=== PATIENT | male | born 1950 | race Caucasian/White ===

== ENCOUNTER 2017-11-29 09:09 | Day surgery (SDC) | payer MEDICARE, OTHER ==
[~2017-11-29 09:09] MED LIST: Buffered Lidocaine 0.9% SYRIN* 5 ML/SYR SYRINGE INTRADERM ONE; Dexamethasone IV* 4 MG/ML 1 ML (4 MG) IV SLOW PU ONE; Levalbuterol 0.63MG/3ML NEB* UNIT OF USE INH ONE
[2017-11-29] MEDS ORDERED: Dexamethasone IV* 4 MG/ML 1 ML (4 MG) ONE (09:21)
[2017-11-29] MEDS ORDERED: Levalbuterol 0.63MG/3ML NEB* UNIT OF USE INH ONE ×3 (09:22→16:02)
[2017-11-29] MEDS ORDERED: ceFAZolin 2 GM PREMIX (*) 2 GM/50 ML BAG IVPB ONE (09:22)
[2017-11-29] MEDS ORDERED: Midazolam* 1 MG/ML 5 ML VIAL (5 MG) ONE (11:09)
[2017-11-29] MEDS ORDERED: fentaNYL* 50 MCG/ML 2 ML VIAL (100 MCG VIAL) ONE ×4 (11:09→14:54)
[2017-11-29] MEDS ORDERED: Propofol* 10 MG/ML 20 ML BTL IV PUSH ONE (11:37)
[2017-11-29] MEDS ORDERED: Ropivacaine (OR use only) 2 MG/ML 10 ML ONE ×2 (11:37→11:38)
[2017-11-29] MEDS ORDERED: Lidocaine 2% PF * 5 ML VIAL ONE (11:37)
[2017-11-29] MEDS ORDERED: Atracurium* 10 MG/ML 10 ML VIAL ONE (11:40)
[2017-11-29] MEDS ORDERED: EPINEPHRINE 1 MG/ML 1 ML VIAL ONE (11:56)
[2017-11-29] MEDS ORDERED: Bupivacaine 0.5% SDV PF* 30ML VIAL ONE (11:56)
[2017-11-29] MEDS ORDERED: HYDROmorphone INJ* 1 MG/ML CARPUJECT SYRINGE IV PRN (13:08)
[2017-11-29] MEDS ORDERED: fentaNYL* 50 MCG/ML 2 ML VIAL (100 MCG VIAL) IV PRN (13:08)
[2017-11-29] MEDS ORDERED: DiMENhydriNATE IV* 50 MG/ML VIAL IV PUSH PRN (13:08)
[2017-11-29] MEDS ORDERED: Ondansetron INJ* 2 MG/ML VIAL IV PRN (13:08)
[2017-11-29] MEDS ORDERED: Naloxone* 0.4 MG/ML 1 ML VIAL IV PRN (13:08)
[2017-11-29] MEDS ORDERED: oxyCODONE/Acetamin 5/325 MG* TAB ONE ×2 (16:21→18:25)
[2017-11-29] MEDS: oxyCODONE/Acetamin 5/325 MG* TAB PO PRN ×2 (16:22→18:26)
[2017-11-29 19:21] VITALS: BP 147/76
--- NOTE | 2017-12-01 01:54 | OP ---
OPERATIVE REPORT: DATE OF OPERATION: 11/29/17 DATE OF : 54 SURGEON: Kirk Oreilly MD COOK CHILI: CARLOS Oden A physician medical assistant supervisor was required for the length of the procedure for positioning, help with instrum entation and closure. ANESTHESIOLOGIST: Dr. Arian Tyson. ANESTHESIA: General anesthesia, right regional nerve block, local anesthesia. PRE-OP DIAGNOSES: 1. Right shoulder recurrent, massive rotator cuff tendon tear, retracted with supraspinatus and infr aspinatus, possible superior subscapularis. 2. Right shoulder subacromial impingement, chronic long head biceps tendon tear. 3. History of right shoulder open rotator cuff tendon repair done by Dr. Stern at [facility] in 2005. POST-OP DIAGNOSES: 1. Right shoulder recurrent, massive rotator cuff tendon tear, retracted, supraspinatus and infraspi natus. 2. Right shoulder subacromial impingement, chronic biceps tendon tear, long head. 3. History of right shoulder open rotator cuff tendon repair done by Dr. Stern at [facility] in 2005. OPERATIVE PROCEDURES: 1. Right shoulder arthroscopic revision rotator cuff tendon repair, massive, retracted, 5 anchors in a double-row construct. 2. Modifier 22 was coded for this procedure due to the complexity of it. The patient had a full wid th 2 tendon tear of the supraspinatus and infraspinatus with retraction to the level of the glenoid o r medial to the glenoid. There was some unusual shape to the rotator cuff tear and the tendon likely secondary to an open prior rotator cuff tendon repair in 2005 in an outside hospital. 3. Right shoulder arthroscopic subacromial decompression. ANTIBIOTICS: Ancef 2 g IV. IV FLUIDS: 2000 cc crystalloid. [id number] TIME: 158 minutes. ARTHROSCOPIC FLUID UTILIZED: 18 bags each with 3 L for a total of 54 L. SPECIMEN: None. IMPLANTS: Two triple-loaded Mitek Gryphon 5.5-mm anchors. One double loaded Mitek Gryphon 5.5-mm an chor, two knotless Mitek Gryphon 5.5-mm anchors for a total of five anchors. COMPLICATIONS: None. ESTIMATED BLOOD LOSS: Minimal. INDICATIONS FOR PROCEDURE: The patient is a 67-year-old man, who smokes one pack per day of cigarett es with multiple medical problems including those that affect the heart and lungs who is [address] atus post arthroscopic rotator cuff repair of the contralateral left shoulder done by me on 05/25/16, who presented to me more recently after a fall and injury of the right shoulder on 10/01/17. 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 See my 10/29/17 clinic notes for the details. When I first saw the patient in clinic, I knew he had a la rge rotator cuff tendon tear. He told me that he had had prior rotator cuff repair performed by Dr. Stern at [facility]. The scar on the right shoulder made it obvious that this was done op en rather than arthroscopic. MRI confirmed the diagnosis and the patient opted for surgery. I discu ssed risks and potential complications of surgery. Given the patient's status as a smoker, the recurrent nature of this tear, and the retraction of two tendons, supra and infraspinatus to the level of the glenoid, I told the patient that it was not guar anteed that this would be repairable. However, the lack of significant fatty infiltration in the rota tor cuff musculature made me optimistic that a repair was feasible. DESCRIPTION OF PROCEDURE: Preoperatively the patient signed a written consent. Operative extremity w as marked in preoperative holding. In preoperative holding, Dr. Tyson performed a right regional nerve block. This was purposely liked to avoid any possible injury to the phrenic nerve and that lynette ht cause hypomotility of the diaphragm. The patient is known to have a very poor lung reserve, capac ity. The patient was taken to the operating room and placed supine on the operating room table. The patient was sedated and intubated. The patient was transferred into the lateral decubitus position right side up. Granado bag was hardened, axillary roll was placed, all bony prominences padded and the right shoulder was placed in 15 pounds of longitudinal retraction with the appropriate amount of shoulder forward flexion and abduction. The right shoulder was prepped and draped. Surgical time out was performed. A 30 cc of normal salin e were infused into the glenohumeral joint from posterior and a posterior glenohumeral joint portal w as established. Diagnostic arthroscopy was commenced. No loose bodies were noted in the glenohumera l joints. It was immediately obvious that the patient had a large rotator cuff tear as I could see d irectly up into the subacromial space. Some suture material was visible, retracted just medial to th e glenoid. There was some scar tissue directly superior. At first, I thought the biceps tendon was present. I looked at some tissue from a variety of views and then it became clear that it was not th e biceps and was rather some scar tissue mixed in this rotator cuff tendon tissue. I debrided minima lly of some synovitis and labral fraying. I then entered the subacromial space from anterior and pos terior. I established a lateral subacromial portal under direct visualization. I debrided subacromi al bursitis, improving my visualization. I established a posterolateral portal to improve my visuali zation. The patient had no supraspinatus or infraspinatus attached to the humeral head whatsoever. H e had a full-width tears with retraction to medial of the glenoid. There was a small amount of scar t issue bridge present that was released. I took a grasper and found that the rotator cuff tendons pretty t were torn were fairly mobile. I next debrided the undersurface of the acromion with a VAPR and performed my subacromial decompressi on with an arthroscopic adam. This opened up the subacromial space a little bit additionally. I next went to about improving the mobility of my torn rotator cuff tendon. I used a switching stick and an arthroscopic shaver to release the retracted tendon superior and inferior to it. I encounter ed some bleeding and I had to cauterize this bleeding and wait for it slow down so that my visualizat ion would improve. I placed a traction stitch with FiberWire #2, in the tendon to pull it out to length and then I debri ded more, tendon attachments allowing some additional traction. The tendon appeared to just reach the medial aspect of the rotator cuff tendon footprint on the great er tuberosity. I prepared the foot print with VAPR and then with arthroscopic adam to improve healin g potential. I next placed an anchor more anteriorly and exposed footprint. This was triple loaded. This was at the medial end of the footprint. Using a Bill and Nephew passer, I placed three horizontal mattress stitches in the rotator cuff tendon. I placed these stitches and tied them as I went. These barely were able to bring the rotator cuff tendon down to bone. They were under some tension. Interestingly, after this first anchor had been placed, I noted improved mobility of tissue anterior to this. It seemed that there was laxity to the anterior aspect of the supraspinatus that was not ap preciable when I first grasped all parts of the tendon that had retracted. Perhaps the first anchor placed potentiated this improved mobility. I noted that the supraspinatus tissue more anterior and w as able to come further over the humeral head than the first amount of tissue. Therefore I placed my second anchor just anteriorly to the first anchor but much more lateral. Then I placed three horizontal mattress stitches and then tied them. I was very happy with the large amoun t of rotator cuff apposing bone. I next addressed the more about posterior rotator cuff tendon tissue. There was not much infraspinat us tendon remaining. I clearly found myself manipulating with grasper a tendon and muscle. I placed a double loaded Mitek suture anchor in the medial aspect of the footprint more posteriorly and passe d with a [employer] suture passer as well as with a Portal passer from [employer], two horizontal mat tress stitches and then tied them. This brought rotator cuff tendon to bone on the entire distance o f the tear anterior to posterior. I was very happy with this construct but it clearly required a lat eral row given the length of the tear and given that that first anchor stitches were under some tensi on. Therefore I next cleared the lateral footprint and placed two lateral row anchors. The more ant erior of the two took suture from the posterior anchors and the more posterior of the lateral row anc hors took suture that were more anteriorly placed from the medial row. I probed my repair and liked it. As I moved the humeral head, the repair seemed very solid. I next performed a little bit of add itional subacromial decompression using an arthroscopic adam to completely open up that subacromial s pace. I removed instruments and fluids from the subacromial space. Skin incisions were closed with [id number] and 12 stitches using nylon 4.0 suture. Xeroform, 4x 4s, ABDs, foam tape, sling and abduction pillow, cooling unit. The patient was awakened, extubated an d brought to the PACU. DISPOSITION: The patient recovered in the PACU. We considered admitted him given his medical proble ms and low respiratory reserve, but the patient did very well in the PACU, he was very comfortable an d was breathing normally and very comfortable. He preferred being discharged home and we felt that he was safe to. The patient will receive Percocet as needed for pain control and aspirin b.i.d. nicolas mchugh for DVT prophylaxis. He will follow up 10 to 14 days postoperatively. He will start physical the rapy immediately. Wound care instructions provided. [id number]/[facility] #: [id number]
== END 2017-11-29 19:35 | disposition home or self-care (01) ==
LOC: OR 09:09
PROVIDERS: ATTEND Orthopaedic Surgery
DX: S46.011D Strain of muscle(s) and tendon(s) of the rotator cuff of right shoulder, subsequent encounter (principal); S46.211D Strain of muscle, fascia and tendon of other parts of biceps, right arm, subsequent encounter; M75.41 Impingement syndrome of right shoulder; M19.011 Primary osteoarthritis, right shoulder; I10 Essential (primary) hypertension; J44.9 Chronic obstructive pulmonary disease, unspecified; E78.00 Pure hypercholesterolemia, unspecified; F17.210 Nicotine dependence, cigarettes, uncomplicated; Z88.5 Allergy status to narcotic agent; Z79.82 Long term (current) use of aspirin; X58.XXXD Exposure to other specified factors, subsequent encounter
CPT/HCPCS: A9270-GY; J0690; J1100; J2250; J2704; J2795; J3010

== ENCOUNTER 2018-02-20 10:09 | Day surgery (SDC) | payer MEDICARE, OTHER ==
[~2018-02-20 10:09] MED LIST changes: -Dexamethasone IV* 4 MG/ML 1 ML (4 MG) IV SLOW PU ONE; +Dexamethasone TAB* 4 MG PO ONE; +DiMENhydriNATE IV* 50 MG/ML VIAL IV PUSH PRN; +Famotidine IV* 10 MG/ML 2 ML (20 mg) IV ONE; -Levalbuterol 0.63MG/3ML NEB* UNIT OF USE INH ONE; +Naloxone* 0.4 MG/ML 1 ML VIAL IV PRN; +Ondansetron TAB* 4 MG PO ONE; +PROCHLORPERAZINE INJ 5 MG/ML 2 ML VIAL IV PRN; +fentaNYL* 50 MCG/ML 2 ML VIAL (100 MCG VIAL) IV PRN; +oxyCODONE/Acetamin 5/325 MG* TAB PO PRN
[2018-02-20] MEDS ORDERED: Dexamethasone TAB* 4 MG ONE (10:34)
[2018-02-20] MEDS ORDERED: Ondansetron ODT TAB* 4 MG ONE (10:34)
[2018-02-20] MEDS ORDERED: Famotidine IV* 10 MG/ML 2 ML (20 mg) ONE (10:34)
[2018-02-20] MEDS ORDERED: ceFAZolin 2 GM in NS PREMIX(*) 2 GM/100 ML BAG IVPB ONE (10:35)
[2018-02-20] MEDS ORDERED: KETAMINE HCL* 50 MG/ML 10 ML VIAL ONE (11:49)
[2018-02-20] MEDS ORDERED: Midazolam* 1 MG/ML 5 ML VIAL (5 MG) ONE (11:49)
[2018-02-20] MEDS ORDERED: fentaNYL* 50 MCG/ML 2 ML VIAL (100 MCG VIAL) ONE (11:49)
[2018-02-20] MEDS ORDERED: Lidocain 1% EPI 1:100,000 * 30 ML MDV ONE (12:52)
[2018-02-20] MEDS ORDERED: Bupivacaine 0.25% SDV PF* 10 ML VIAL INJ ONE (12:53)
[2018-02-20] MEDS ORDERED: Lidocaine 2% PF * 5 ML VIAL ONE (13:20)
[2018-02-20] MEDS ORDERED: Propofol* 500 MG/50 ML BTL ONE (13:20)
[2018-02-20] MEDS ORDERED: Mineral Oil Sterile, TOPICAL* 25 ML BTL ONE (13:38)
[2018-02-20] MEDS ORDERED: Midazolam* 1 MG/ML 2 ML VIAL (2 MG) ONE (13:59)
[2018-02-20 16:13] VITALS: BP 123/77
== END 2018-02-20 16:24 | disposition home or self-care (01) ==
LOC: OR 10:09
PROVIDERS: ATTEND Plastic Surgery
DX: C44.311 Basal cell carcinoma of skin of nose (principal); I10 Essential (primary) hypertension; J44.9 Chronic obstructive pulmonary disease, unspecified; Z99.81 Dependence on supplemental oxygen; K21.9 Gastro-esophageal reflux disease without esophagitis
CPT/HCPCS: 88305; 88331; 88332; A9270-GY; J0690; J2250; J2704; J3010; J3490; J8540

== ENCOUNTER 2018-11-22 14:29 | Emergency (ER) | payer BC ==
--- OUTSIDE RECORDS SUMMARY | 2018-11-22 14:42 | XMS REPORT | Continuity of Care Document ---
:1950 External Reference #:[id number] Author Name Jose Luis Virgen DO, MPH Address [address], [address] [place] [address] Care Team Providers Name Role Phone Westley Carr M.D. Care Team Information Tire Service Technician Unavailable Westley Carr M.D. 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 Working ETOH Use Rarely consumes alcohol Tobacco Use Start: Unknown Patient is a current smoker, smokes every day Recreational Drug Use Denies Drug Use Smoking Status Reviewed: 11/17/18 Patient is a current smoker, smokes every day Allergies, Adverse Reactions, Alerts Active Allergies Reaction Severity Comments Date Codeine 01/20/2018 Iodine 01/20/2018 Nexium 01/20/2018 Bananas 01/20/2018 Ibuprofen 01/20/2018 Medications Active Medications SIG Qnty Indications Ordering Date Provider Carisoprodol si by mouth one 30tabs Jose Luis Virgen, 350mg Tablets a day as needed DO, MPH 9 Hydrocodone-Acetaminophen si-2 by mouth 180tabs Jose Luis Virgen, every 6 to 8 hours DO, MPH 8 10-325mg Tablets as directed chronic pain patient, Rosuvastatin Calcium Unknown 40mg 0 Tablets Nitroglycerin ER Unknown 00/00/000 2.5mg Capsules 0 ER Ventolin HFA 1-2 puffs as Unknown 108(90Base) needed every 4-6 0 mcg/Act Aerosol hours for shortness for breath Vitamin B12 1 by mouth daily Unknown 1000mcg Tablets ER 0 Vitamin D 1 by mouth twice Unknown (Cholecalciferol) daily 0 1000Unit Capsules Multivitamin Adult 1 by mouth daily Unknown Tablets 0 Aspir-81 1 by mouth every Unknown 81mg Tablets DR night at bedtime 0 Testosterone Enanthate 1 milliliters Unknown 200mg/ml intramuscular 0 Solution every 7-10 days as directed Hydrochlorothiazide 1 by mouth every Unknown 25mg day 0 Tablets Amlodipine Besylate si by mouth Unknown 5mg Tablets every day 0 Quinapril HCL 1 by mouth daily Unknown 10mg Tablets 0 Metoprolol Tartrate si by mouth Unknown 100mg every 12 hours as 0 Tablets directed Zoloft si by mouth Unknown 50mg Tablets twice a day as 0 directed chronic pain patient Ranitidine HCL 1 by mouth twice Unknown 300mg Tablets daily 0 Aciphex si by mouth Unknown 20mg Tablets DR twice daily as 0 directed Advair Diskus 1 puffs twice a Unknown 250-50mcg/Dose day 0 Aerosol Xanax si by mouth Unknown 0.5mg Tablets every 12 hours as 0 directed History Medications Proair HFA si-2 puffs a Unknown - 02/19/2018 108(90Base) mcg/Act needed Aerosol Soma si by mouth one a Unknown - 11/17/2018 350mg Tablets day as needed Vital Signs Date Vital Result Comment 11/17/2018 10:14am BP Systolic 138 mmHg BP Diastolic 82 mmHg Heart Rate 84 /min Respiratory Rate 20 /min Height 67 inches 5'7" Weight 214.00 lb Pain Level 5 Pain at this time. Pain Level With Medicine 5 on average with meds Pain Level Without Medicine 9 without meds BMI (Body Mass Index) 33.5 kg/m2 10/17/2018 9:46am BP Systolic 138 mmHg BP Diastolic 86 mmHg Heart Rate 88 /min Respiratory Rate 20 /min Height 67 inches 5'7" Weight 214.00 lb Pain Level 4 Pain at this time. Pain Level With Medicine 3 on average with meds Pain Level Without Medicine 9 03/19 without meds BMI (Body Mass Index) 33.5 kg/m2 09/18/2018 9:34am BP Systolic 132 mmHg BP Diastolic 84 mmHg Heart Rate 86 /min Respiratory Rate 20 /min Height 67 inches 5'7" Weight 215.00 lb Pain Level 7 Pain at this time. Pain Level With Medicine 6 on average with meds Pain Level Without Medicine 9 03/19 without meds BMI (Body Mass Index) 33.7 kg/m2 08/15/2018 9:39am BP Systolic 140 mmHg BP Diastolic 88 mmHg Heart Rate 86 /min Respiratory Rate 20 /min Height 67 inches 5'7" Weight 213.00 lb Pain Level 8 Pain at this time. Pain Level With Medicine 7 on average with meds Pain Level Without Medicine 03/19 without meds BMI (Body Mass Index) 33.4 kg/m2 07/18/2018 2:05pm BP Systolic 140 mmHg BP Diastolic 84 mmHg Heart Rate 86 /min Respiratory Rate 20 /min Height 67 inches 5'7" Weight 208.00 lb Pain Level 5 Pain at this time. Pain Level With Medicine 4 on average with meds Pain Level Without Medicine 03/19 without meds BMI (Body Mass Index) 32.6 kg/m2 06/20/2018 11:17am BP Systolic 140 mmHg BP Diastolic 86 mmHg Heart Rate 82 /min Respiratory Rate 20 /min Height 67 inches 5'7" Weight 209.00 lb Pain Level 4 Pain at this time. Pain Level With Medicine 4 on average with meds Pain Level Without Medicine 10 03/19 without meds BMI (Body Mass Index) 32.7 kg/m2 05/21/2018 10:08am BP Systolic 138 mmHg BP Diastolic 88 mmHg Heart Rate 86 /min Respiratory Rate 20 /min Height 67 inches 5'7" Weight 214.00 lb Pain Level 7 Pain at this time. Pain Level With Medicine 6 on average with meds Pain Level Without Medicine 03/19 without meds Pain Level After Procedure 3 BP Systolic Recheck 142 mmHg Pulse: 94 BP Diastolic Recheck 86 mmHg Pulse: 94 BMI (Body Mass Index) 33.5 kg/m2 04/21/2018 9:24am BP Systolic 140 mmHg BP Diastolic 86 mmHg Heart Rate 82 /min Respiratory Rate 20 /min Height 67 inches 5'7" Weight 214.00 lb Pain Level 4 Pain at this time. Pain Level With Medicine 3 on average with meds Pain Level Without Medicine 03/19 without meds BMI (Body Mass Index) 33.5 kg/m2 03/05/2018 2:40pm BP Systolic 144 mmHg BP Diastolic 86 mmHg Heart Rate 82 /min Respiratory Rate 20 /min Height 67 inches 5'7" Weight 210.00 lb Pain Level 3 Pain at this time. Pain Level With Medicine 2 on average with meds Pain Level Without Medicine 03/19 without meds BMI (Body Mass Index) 32.9 kg/m2 02/19/2018 10:01am BP Systolic 140 mmHg BP Diastolic 78 mmHg Heart Rate 82 /min Respiratory Rate 20 /min Height 67 inches 5'7" Weight 210.00 lb Pain Level 6 Pain at this time. Pain Level With Medicine 6 on average with meds Pain Level Without Medicine 03/19 without meds BMI (Body Mass Index) 32.9 kg/m2 02/03/2018 10:57am BP Systolic 136 mmHg BP Diastolic 80 mmHg Heart Rate 84 /min Respiratory Rate 20 /min Height 67 inches 5'7" Weight 211.00 lb Pain Level 7 Pain at this time. Pain Level With Medicine 6 on average with meds Pain Level Without Medicine 03/19 without meds BMI (Body Mass Index) 33.0 kg/m2 01/20/2018 9:06am BP Systolic 130 mmHg BP Diastolic 86 mmHg Heart Rate 84 /min Respiratory Rate 20 /min Height 67 inches 5'7" Weight 211.00 lb Pain Level 5 Pain at this time. Pain Level Without Medicine 10 03/19 without meds BMI (Body Mass Index) 33.0 kg/m2 Procedures Date Code Description Status 05/21/2018 14963 Arthrocentesis Aspiration Inj, Small Joint/Bursa W US Completed Guidance Encounters Type Date Location Provider Dx Diagnosis Office Visit 10/17/2018 Main Office as Of Jose Luis Virgen DO, G89.21 Chronic pain due 9:45a 14 MPH to trauma M54.5 Low back pain M25.562 Pain in left knee M25.532 Pain in left wrist Z79.891 snf (current) use of opiate analgesic Office Visit 09/18/2018 9:30a Main Office as Jose Luis Virgen G89.21 Chronic pain due Of 07/11/13 DO, MPH to trauma M54.5 Low back pain M25.562 Pain in left knee M25.532 Pain in left wrist M25.531 Pain in right wrist 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 Office Visit 08/15/2018 10:00a Main Office as Jose Luis Virgen G89.21 Chronic pain due Of 07/11/13 DO, MPH to trauma M54.5 Low back pain M25.562 Pain in left knee M25.532 Pain in left wrist M25.531 Pain in right wrist M15.9 Polyosteoarthritis, unspecified E78.2 Mixed hyperlipidemia I10 Essential (primary) hypertension E29.1 Testicular hypofunction Z79.891 snf (current) use of opiate analgesic Office Visit 07/18/2018 2:15p Main Office as Jose Luis Virgen G89.21 Chronic pain due Of 07/11/13 DO, MPH to trauma M54.5 Low back pain M25.562 Pain in left knee 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 Office Visit 06/20/2018 10:45a Main Office as Jose Luis Virgen G89.21 Chronic pain due Of 07/11/13 DO, MPH to trauma M54.5 Low back pain Z79.891 snf (current) use of opiate analgesic Office Visit 05/21/2018 10:00a Main Office as Jose Luis Virgen G89.21 Chronic pain due Of 07/11/13 DO, MPH to trauma M79.645 Pain in left finger(s) M54.5 Low back pain Z79.891 snf (current) use of opiate analgesic Office Visit 04/21/2018 9:00a Main Office Jose Luis Virgen G89.28 Other chronic as Of 07/11/13 DO, MPH postprocedural pain G89.21 Chronic pain due to trauma M25.562 Pain in left knee Z79.891 snf (current) use of opiate analgesic Office Visit 03/05/2018 2:30p Main Office Jose Luis Virgen G89.28 Other chronic as Of 07/11/13 DO, MPH postprocedural pain G89.21 Chronic pain due to trauma M54.5 Low back pain M25.561 Pain in right knee M25.562 Pain in left knee M15.9 Polyosteoarthritis, unspecified Z79.891 snf (current) use of opiate analgesic Office Visit 02/19/2018 10:00a Main Office Jose Luis Virgen G89.28 Other chronic as Of 07/11/13 DO, MPH postprocedural pain G89.21 Chronic pain due to trauma M54.5 Low back pain M25.551 Pain in right hip M25.561 Pain in right knee M25.562 Pain in left knee M25.552 Pain in left hip M15.9 Polyosteoarthritis, unspecified Z79.891 snf (current) use of opiate analgesic Office Visit 02/03/2018 11:00a Main Office as Jose Luis Virgen G89.21 Chronic pain due Of 07/11/13 DO, MPH to trauma G89.28 Other chronic postprocedural pain M54.5 Low back pain M25.551 Pain in right hip M25.562 Pain in left knee M25.561 Pain in right knee Z79.891 snf (current) use of opiate analgesic Office Visit 01/20/2018 9:00a Main Office Jose Luis Virgen G89.28 Other chronic as Of 07/11/13 DO, MPH postprocedural pain G89.21 Chronic pain due to trauma M54.5 Low back pain M25.512 Pain in left shoulder M79.672 Pain in left foot M79.671 Pain in right foot M25.561 Pain in right knee M25.562 Pain in left knee M25.531 Pain in right wrist M25.532 Pain in left wrist M25.551 Pain in right hip Z79.891 snf (current) use of opiate analgesic M25.552 Pain in left hip M15.9 Polyosteoarthritis, unspecified F17.210 Nicotine dependence, cigarettes, uncomplicated Z71.3 Dietary counseling and surveillance Z71.89 Other specified counseling Plan of Treatment Future Appointment(s):12/16/2018 9:30 am - Jose Luis Virgen DO, MPH at Main Office as Of 07/11/1405 - Jose Luis Virgen DO, MPHG89.21 Chronic pain due to traumaComments:Chronic. Symptoms and complaints discussed and reviewed today. No significant changes in physical findings. Continue current medical pain management.M54.5 Low back painComments:Chronic. Symptoms and complaints discussed and reviewed today.No changes in physical findings. Patient is stable and comfortable when current medical therapy is rendered.M25.562 Pain in left kneeComments:Chronic.Symptoms and complaints discussed and reviewed today. No significant changes in physical findings. Continue current medical pain management.Z79.891 snf (current) use of opiate analgesicNew Labs:Urine Drug Screen, Ordered: 11/17/18Comments:Urine drug screen sample taken today to monitor opiate use and to monitor use of illicit substances.Will discuss results at next appointment.The following tests were ordered:6 AM, AMPH, NETO, JOSSELIN, BUP, CARIS, COCM, COT, ETG, FENT, MCSHSG, OPI, OXY, PCP, TAPEN, XTSY, ZOLP. A urine drug test (UDT) was ordered for this patient and collected on site today. Creatinine has been ordered as well for specimen validity, not for kidney function. Preliminary UDT results are not final and should not be used to determine patient care or plan of treatment. Initially a qualitative immunoassay screen will be done. Any inconsistent or positive findings will be further tested with a more comprehensive quantitative confirmation LCMS study. It is part of the treatment process of prescribing controlled substances and is considered standard of care.G90.3 Multi-system degeneration of the autonomic nervous systemNew Orders:Sudomotor Test, Ordered: 11/17/18Comments:Sudomotor testing ordered to determine the effect, if any, of chronic illness and pain on small nerve fibers and/or autonomic nervous system function. Future testing will help to monitor the effects ofchronic illness,pain and subsequent treatments on the autonomic nervous system. If proper diagnosis and monitoring of ANS and/or small pain fiber problems is not appropriately addressed, adequate pain management may not be achieved.AllNew Medication:Carisoprodol 350 mg - si by mouth one a day as neededComments:Continue current medical pain management; injection therapy, osteopathic manipulation, PT / modalities, and consults as needed to manage chronic pain.Non - opioid pain management discussed and optionsdiscussed.Side effects discussed; anticipatory guidance given. Patient clearly understand and agree with all medical treatments and suggestions. All medicines prescribed are adequate and appropriate for this patient's complaint of pain, medical history, physical, and personal goals.Goals of Treatment are to provide adequate and appropriate multidisciplinary medical pain management to increase/ maintain patient's quality of life and functionality while maintaining satisfactory side effect profile andminimizing snf end-organ damage. Importance of regular nutrition throughout the day discussed.Activity as toleratedContinue with PCP
--- OUTSIDE RECORDS SUMMARY | 2018-11-22 14:42 | XMS REPORT | Continuity of Care Document ---
:1950 External Reference #:[id number] Author Name Arian Don M.D. Address [address] [place] [address] Care Team Providers Name Role Phone Westley Carr M.D. Primary Care Physician Unavailable Payers Date Identification Numbers Payment Provider Subscriber Policy Number: [id number] [facility] Rajat Lou PayID: [id number] [place] [id number] Problems Active Problems Provider Date Essential hypertension Arian Don M.D. Onset: 08/17/2014 Pure hypercholesterolemia Arian Don M.D. Onset: 08/17/2014 Presence of intraocular lens Arian Don M.D. Onset: 11/10/2018 Other secondary cataract, bilateral Arian Don M.D. Onset: 11/10/2018 Vitreous degeneration Arian Don M.D. 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 B12 Arian Don, 08/17/2014 Tab M.D. Vitamin D 1 by mouth twice a Arian Don, 08/17/2014 (Cholecalciferol) day M.D. 1000Unit Tablets Aspirin Low Dose 1 by mouth every Arian Don, 08/17/2014 81mg day M.D. Tablets Xanax daily Unknown 2mg Tablets Nitroglycerin Unknown 0.3mg Tablets Sub Rosuvastatin Calcium daily Unknown 20mg Tablets Prednisolone Acetate 1 drops both eyes Unknown 1% twice daily Suspension Albuterol Sulfate Unknown (2.5mg/3ML) 0.083% Nebulizer Carisoprodol Unknown 350mg Tablets Quinapril HCL Unknown 10mg Tablets Proair HFA Unknown 108(90Base) mcg/Act Aerosol Advair Diskus Unknown 250-50mcg/Dose Aerosol Rabeprazole Sodium Unknown 20mg Tablets DR Sertraline HCL Unknown 50mg Tablets Testosterone Cypionate injection Unknown 200mg/ml Solution Metoprolol Succinate Unknown ER 100mg Tablets ER 24HR Amlodipine Besylate Unknown 5mg Tablets Hydrocodone-Acetaminop Unknown hen 10-325mg Tablets History Medications Systane Ultra Every two hours Arian Don, 09/01/2014 - 0.4-0.3% both eyes M.D. 11/08/2018 Solution Vigamox one drop left eye 3ml Arian Don, 08/23/2014 - 0.5% Solution three times a day, M.D. 11/08/2018 start the day before surgery Ilevro one drop both eyes 3ml Arian Don, 08/23/2014 - 0.3% Suspension each day M.D. 11/08/2018 Pred Forte one drop twice a 15ml Arian Don, 08/23/2014 - 1% Suspension day in the right M.D. 11/08/2018 eye, one drop three times a day in the left eye. Simvastatin Unknown - 80mg Tablets 11/08/2018 Procedures Date Code Description Status 09/01/2014 24300 Extracapsular Cataract Extraction W/Intraocular Lens Completed 08/25/2014 14907 Extracapsular Cataract Extraction W/Intraocular Lens Completed 08/23/2014 52986 Ophthalmic Biometry Completed 08/23/2014 72626 Ophthalmic Biometry Completed 08/17/2014 65821 New Patient Comprehensive Exam Completed Encounters Type Date Location Provider Dx Diagnosis Office Visit 08/23/2014 Arian Don, Arian Don, 366.16 Senile Nuclear 9:30a , mery Morales Sclerosis / Cataract Plan of Treatment 11/10/2018 - Arian Don M.D.H26.493 Other secondary cataract, bilateralComments:Smoking can increase the risk of developing or worsening any eye related disease, as well as affect your overall health. If you are a smoker , we strongly recommend that you quit.If you are not a smoker, we strongly recommend that you do not start. There is clouding in the sac that holds your artificial lens in both eyes. We will schedule you an appointment for the YAG Capsulotomy laser with Dr. Don. Please read the pamphlet that has been printed out for you. We recommend you bring someone to drive you home.Follow up :Schedule YAG OUZ96.1 Presence of intraocular lensComments:The artificial lens implants in both eyes appear to be stable at this time.H43.813 Vitreous degeneration, bilateralComments:You have a Posterior Vitreous Detachment. If you have any changes in your floaters or flashing lights, please contact this office.
[2018-11-22] MEDS ORDERED: Lidocaine 2% W/EPI 1:100,000* 20 ML MDV INJ ONE (14:58)
[2018-11-22 15:01] VITALS: BP 140/76
--- NOTE | 2018-11-22 15:09 | UC ---
Laceration HPI - HPI Summary HPI Summary: Cut left middle finger today on a razor knife cutting cable ties. Having trouble getting it to stop bleeding. Tetanus not up to date. - History Of Current Complaint Stated Complaint: LEFT MIDDLE FINGER LAC Hx Obtained From: Patient Laceration Location: Finger - left 3rd finger Mechanism Of Injury: Sharp Trauma Onset/Duration: Sudden Onset Severity: Mild Pain Intensity: 0 Aggravating Factors: Movement Related History: Dominant Hand Right - Allergies/Home Medications Allergies/Adverse Reactions: Allergies Allergy/AdvReac Type Severity Reaction Status Date / Time banana Allergy Severe nausea/vomi Verified 11/22/18 14:47 ting/hives codeine Allergy Severe Shortness Verified 11/22/18 14:47 of Breath iodine Allergy Severe Rash Verified 11/22/18 14:47 ibuprofen Allergy Unknown Unknown Verified 11/22/18 14:47 Reaction Details Home Medications: Home Medications Isosorbide Dinitrate 5 mg PO DAILY 11/22/18 [History Confirmed 11/22/18] Rosuvastatin Calcium [Crestor] 40 mg PO DAILY 11/22/18 [History Confirmed ] PMH/Surg Hx/FS Hx/Imm Hx Cardiovascular History: Hypertension Respiratory History: COPD, Asthma - Surgical History Surgical History: Yes Surgery Procedure, Year, and Place: R kidney, ureter and part of bladder surgery 2011. toes removal AGE 20- SMALL TOE- LEFT. TENDON RELEASE ON LT FOOT - TOES- AGE 18. METATARSAL FX - REPAIR BOTH FEET. 2 knee - Rt KNEE - ARTHROSCOPIC - MMT. GANGLION CYST RIGHT WRIST. CYST REMOVABLE LEFT FOOT. Rt SHOULDER - 2005 & 2018- RCT, Lt SHOULDER 2015. 6- RIGHT wrist surgery. RIGHT CARPAL TUNNEL RELEASE. RIGHT FOOT SURGERY 2015 [facility]. BILATERAL CATARACT SURGERY- [facility]. UMBILICAL SURGERY - [facility]. KIDNEY STONES 2015 [facility]. BLADDER - 3 TUMORS REMOVED - [facility]. SHOULDER SURGERY - Family History Known Family History: Positive: Hypertension - Social History Occupation: Employed Full-time Lives: With Family Alcohol Use: Occasionally Substance Use Type: None Smoking Status (MU): Current Some Day Smoker Type: Cigarettes Amount Used/How Often: 1 PPD X 50 YEARS Length of Time of Smoking/Using Tobacco: 50 YRS Have You Smoked in the Last Year: Yes Household Exposure Type: Cigarettes Cessation Counseling: Patient Advised to Stop - Immunization History Most Recent Tetanus Shot: unknown Review of Systems All Other Systems Reviewed And Are Negative: Yes Skin: Positive: Other - laceration Is Patient Immunocompromised?: No Physical Exam Triage Information Reviewed: Yes Appearance: Well-Appearing, No Pain Distress, Well-Nourished Vital Signs: Initial Vital Signs Temp 98.5 F 11/22/18 14:52 Pulse 86 11/22/18 14:52 Resp 24 11/22/18 14:52 BP 140/76 11/22/18 14:52 Pulse Ox 90 11/22/18 14:52 Vital Signs Reviewed: Yes Eyes: Positive: Conjunctiva Inflamed Neck exam: Normal Respiratory: Positive: Decreased breath sounds - diffuse, Wheezing - diffuse expiratory wheezes Cardiovascular Exam: Normal Musculoskeletal Exam: Normal Neurological Exam: Normal Psychological Exam: Normal Skin Exam: Normal Images Hands: 1 - 1.4 cm laceration Laceration Repair - Laceration Repair 1 Description: Linear Laceration Size After Repair: Length (cm) - 1.4 cm Modified For Repair: No Type Injection: Local Anesthesia Used: 2.0% Lido Additive Used (in ml): Epi Cleansing Completed Via Routine Prep: Yes Irrigation With Pressure Irrigation Device: Yes Closure Material: Sutures Closure Method: Single Layer Suture Of: Skin Suture Type: Nylon - 4-0 Nylon #6 sutures, running Laceration Course/Dx - Differential Dx - Laceration/Wound Differental Diagnoses: Abrasion, Avulsion, Dehiscence, Laceration - Diagnosis Provider Diagnosis: Laceration of left middle finger, Hypertension Discharge - Sign-Out/Discharge Documenting (check all that apply): Patient Departure All imaging exams completed and their final reports reviewed: No Studies - Discharge Plan Condition: Stable Disposition: HOME Patient Education Materials: Finger Laceration (ED) Referrals: Westley Carr MD [Primary Care Provider] - Additional Instructions: Use antibiotic ointment over the stitches and keep covered with a band aid. Change it twice a day. Return for suture removal in 10 days. - Billing Disposition and Condition Condition: STABLE Disposition: Home
== END 2018-11-22 15:45 | disposition home or self-care (01) ==
LOC: UCCORT 14:29
DX: W26.0XXA Contact with knife, initial encounter (principal); Y93.89 Activity, other specified; Y92.9 Unspecified place or not applicable; S61.213A Laceration without foreign body of left middle finger without damage to nail, initial encounter; I10 Essential (primary) hypertension; Z88.5 Allergy status to narcotic agent; F17.210 Nicotine dependence, cigarettes, uncomplicated; Z88.8 Allergy status to other drugs, medicaments and biological substances
CPT/HCPCS: 12001; 99212; G0463